=== PATIENT | female | born 1965 | race Hispanic/Latino ===

== ENCOUNTER 2020-10-12 12:02 | Emergency (ER) | payer BC ==
[~2020-10-12] VITALS: Ht 152.4 cm; Wt 97.1 kg
[2020-10-12 12:10] VITALS: BP 167/65
[2020-10-12] MEDS ORDERED: NACL 0.9% 1000ML 1,000 ML IV ONE (12:45)
[2020-10-12] MEDS ORDERED: ACETAMINOPHEN 500 MG TABLET PO ONE (12:45)
[2020-10-12 12:50] LABS: APPEARANCE,URINE SL CLOUDY (CLEAR); BILIRUBIN,URINE MODERATE (NEGATIVE); GLUCOSE, URINE (UA) NEGATIVE (NEGATIVE); KETONES,URINE 40 mg/dL (NEGATIVE); LEUKOCYTE ESTERASE ,URINE NEGATIVE (NEGATIVE); NITRATE,URINE NEGATIVE (NEGATIVE); OCCULT BLOOD,URINE LARGE (NEGATIVE); PROTEIN,URINE 100 mg/dL (NEGATIVE); UROBILINOGEN,URINE >=8.0 mg/dL (0.2-1.0)
[2020-10-12 12:52] LABS: HCG,QUAL RESULT NEGATIVE (NEGATIVE)
[2020-10-12 12:53] LABS: COLOR,URINE AMBER (YELLOW)
[2020-10-12 12:57] LABS: BACTERIA,URINE Few /HPF (None Seen); MUCUS,URINE Few LPF (None Seen); RBC,URINE >100 /HPF (0-1); SQUAMOUS EPITHELIAL CELL,UR Few /HPF (0-2)
[2020-10-12 13:06] VITALS: BP_SYST 118; BP_SYST 126; BP_SYST 133; BP_DIAS 58; BP_DIAS 62; BP_DIAS 71
[2020-10-12 13:11] LABS: BASOPHILS % (AUTO) 0.1 % (0.0-5.0); HEMATOCRIT 38.4 % (36-48); LYMPHOCYTES % (AUTO) 13.1 % (21.0-51.0); MEAN CORPUSCULAR HEMOGLOBIN 28.7 pg (27.0-33.0); MEAN CORPUSCULAR HGB CONC 33.6 g/dL (32.0-36.0); MEAN CORPUSCULAR VOLUME 85.3 fL (79-99); MONOCYTES % (AUTO) 2.8 % (3.0-13.0); NEUTROPHILS % (AUTO) 83.4 % (40.0-77.0); PLATELET COUNT (AUTO) 94 K/uL (130-400); RED CELL DISTRIBUTION WIDTH 14.1 % (11.0-15.5); WHITE BLOOD COUNT (AUTO) 8.6 K/uL (4.8-10.8)
[2020-10-12] MEDS ORDERED: CEFTRIAXONE 1G VIAL IVP SCH (13:14)
[2020-10-12 13:26] LABS: POTASSIUM 3.3 mmol/L (3.5-5.1)
[2020-10-12 13:36] LABS: ALBUMIN 2.6 g/dL (3.5-5.0); BILIRUBIN,TOTAL 0.7 mg/dL (0.2-1.0); THYROID STIMULATING HORMONE 1.16 uIU/mL (0.36-3.74)
[2020-10-12] MEDS ORDERED: ACET-2247 PO (14:01)
[2020-10-12] MEDS ORDERED: AMOX-429 PO (14:01)
[2020-10-12 14:31] VITALS: BP 108/60
[2020-10-12] MEDS ORDERED: OSEL75 PO (14:47)
== END 2020-10-12 14:55 | disposition home or self-care (01) ==
LOC: EDH 12:02
DX: J02.0 Streptococcal pharyngitis (principal); E86.0 Dehydration; R00.0 Tachycardia, unspecified; R42 Dizziness and giddiness; E66.9 Obesity, unspecified; Z79.899 Other long term (current) drug therapy; Z68.41 Body mass index [BMI] 40.0-44.9, adult
CPT/HCPCS: 36415; 71045; 80053; 81001; 81025; 84443; 84484; 85025; 87040 ×2; 87804 ×2; 87880; 93005; 96361; 96374; 99285; J0696; J7030